=== PATIENT | female | born 1960 ===

== ENCOUNTER 2018-09-02 15:56 | Inpatient (IN) | payer MEDICARE, BC ==
[2018-09-02 16:08] VITALS: BMI 30.1
--- NOTE | 2018-09-02 17:59 | CP.PCM.HP ---
History of Present Illness - History of Present Illness History of Present Illness: 57 yo female with history of HTN, DM2, Hypothyroidism, Asthma and HLD was brought to [facility] on 08/29/18 after she was found unresponsive by son. Blood sugar was 48 so she was given IV D50. Patient recovered but was initially lethargic. Work ups which included CT scan, MRI and CSF analysis did not reveal significant findings. She was diagnosed to have seizure secondary to hypoglycemia. Diabetic medication were held and patient continued to improve. She was transferred to Acute Rehab for therapy because of deconditioning. Present on Admission - Present on Admission Any Indicators Present on Admission: No History of DVT/PE: No History of Uncontrolled Diabetes: No Urinary Catheter: No Decubitus Ulcer Present: No Review of Systems - Review of Systems All systems: reviewed and no additional remarkable complaints except (aside from those mentioned above, 12 point system review were negative by me) Past Patient History - Tetanus Immunizations Tetanus Immunization: Unknown - Past Medical History & Family History Past Medical History?: Yes - Past Social History Smoking Status: Never Smoked Chewing Tobacco Use: No Cigar Use: No Alcohol: None Drugs: Denies Home Situation {Lives}: With Family - CARDIAC Hx Hypertension: Yes - PULMONARY Hx Asthma: Yes - ENDOCRINE/METABOLIC Hx Diabetes Mellitus Type 2: Yes Hx Hypothyroidism: Yes - MUSCULOSKELETAL/RHEUMATOLOGICAL Hx Falls: Yes - PSYCHIATRIC Hx Substance Use: No - SURGICAL HISTORY Hx Surgeries: No Meds Allergies/Adverse Reactions: Allergies Allergy/AdvReac Type Severity Reaction Status Date / Time No Known Allergies Allergy Verified 09/02/18 17:29 Physical Exam - Constitutional Appears: No Acute Distress - Head Exam Head Exam: ATRAUMATIC - Eye Exam Eye Exam: absent: Scleral icterus - ENT Exam ENT Exam: Mucous Membranes Moist - Neck Exam Neck exam: Negative for: Meningismus - Respiratory Exam Respiratory Exam: absent: Rales, Rhonchi, Wheezes, Respiratory Distress - Cardiovascular Exam Cardiovascular Exam: REGULAR RHYTHM, +S1, +S2 - GI/Abdominal Exam GI & Abdominal Exam: Soft. absent: Tenderness - Rectal Exam Rectal Exam: Deferred - Extremities Exam Extremities exam: Negative for: calf tenderness, pedal edema - Back Exam Back exam: NORMAL INSPECTION - Neurological Exam Neurological exam: Alert, Oriented x3 - Psychiatric Exam Psychiatric exam: Normal Affect - Skin Skin Exam: Dry, Intact Assessment & Plan - Assessment and Plan (Free Text) Assessment: 57 yo female with history of HTN, DM2, Hypothyroidism, Asthma and HLD was brought to [facility] on 08/29/18 after she was found unresponsive by son. Blood sugar was 48 so she was given IV D50. Patient recovered but was initially lethargic. Work ups which included CT scan, MRI and CSF analysis did not reveal significant findings. She was diagnosed to have seizure secondary to hypoglycemia. Diabetic medication were held and patient continued to improve. She was transferred to Acute Rehab for therapy because of deconditioning. 1. Deconditioning refer to PT for management physiatry consult with Dr Osorio 2. Seizure no seizure medication since it was cause by hypoglycemia Dr Prado on neuro consult 3. HTN BP stable and controlled without medications 4. DM2 diabetic maintenance medication on [facility] HgA1C on 08/29/17 was 7.3 accuchek ACHS with low Lispro coverage 5. Hypothyroid TSH was only 0.13 on 08/29 will reduce Levothyroxine to 50mcg from 75mcg PO daily 6. DVT prophylaxis Lovenox 40mg SC daily
[2018-09-02] MEDS: Nystatin 100,000 Units/ml Oral Susp 5 ml UD PO SCH (21:51)
[2018-09-02] MEDS: Insulin Lispro (humaLOG) 100 Units/ml Inj SC SCH (21:57)
--- NOTE | 2018-09-02 22:07 | CP.PCM.CON ---
History of Present Illness - History of Present Illness History of Present Illness: 57 year old female admitted for acute rehab with deconditioning, after being found unresponsive, with apparently occurred secondary to seizure after hypoglycaemia. Patinet also with history of DM, HTN, hypothyroidism Review of Systems - Musculoskeletal Musculoskeletal: Muscle Weakness Past Patient History - Tetanus Immunizations Tetanus Immunization: Unknown - Past Medical History & Family History Past Medical History?: Yes - Past Social History Smoking Status: Never Smoked Chewing Tobacco Use: No Cigar Use: No Alcohol: None Drugs: Denies Home Situation {Lives}: With Family - CARDIAC Hx Hypertension: Yes - PULMONARY Hx Asthma: Yes - NEUROLOGICAL Hx Seizures: Yes - RENAL Hx Chronic Kidney Disease: No - ENDOCRINE/METABOLIC Hx Diabetes Mellitus Type 2: Yes Hx Hypothyroidism: Yes - HEMATOLOGICAL/ONCOLOGICAL Hx Blood Disorders: No Hx AIDS: No Hx Human Immunodeficiency Virus (HIV): No - INTEGUMENTARY Hx Dermatological Problems: No - MUSCULOSKELETAL/RHEUMATOLOGICAL Hx Falls: Yes - GASTROINTESTINAL Hx Gastroesophageal Reflux: Yes - GENITOURINARY/GYNECOLOGICAL Hx Genitourinary Disorders: No - PSYCHIATRIC Hx Substance Use: No - SURGICAL HISTORY Hx Surgeries: No - ANESTHESIA Hx Anesthesia: Yes Hx Anesthesia Reactions: No Hx Malignant Hyperthermia: No Has any member of the family had a problem w/ anesthesia?: No Meds Allergies/Adverse Reactions: Allergies Allergy/AdvReac Type Severity Reaction Status Date / Time No Known Allergies Allergy Verified 09/02/18 17:29 - Medications Medications: Current Medications Enoxaparin Sodium (Lovenox) 40 mg SC DAILY [facility]; Protocol Famotidine (Pepcid) 20 mg PO DAILY [facility] Insulin Human Lispro (Humalog) 0 units SC ACHS [facility]; Protocol Last Admin: 09/02/18 21:57 Dose: Not Given Levothyroxine Sodium (Synthroid) 50 mcg PO 0630 [facility] Nystatin (Nystatin Oral Susp) 5 ml PO QID [facility] Last Admin: 09/02/18 21:51 Dose: 5 ml Potassium Phos/Sodium Phos (Neutra-Phos) 1 pkt PO DAILY [facility] Physical Exam - Constitutional Appears: Well - Head Exam Head Exam: ATRAUMATIC, NORMAL INSPECTION, NORMOCEPHALIC - Eye Exam Eye Exam: EOMI, Normal appearance - ENT Exam ENT Exam: Mucous Membranes Moist - Neck Exam Neck exam: Positive for: Normal Inspection - Respiratory Exam Respiratory Exam: Clear to Auscultation Bilateral, NORMAL BREATHING PATTERN - Cardiovascular Exam Cardiovascular Exam: REGULAR RHYTHM - GI/Abdominal Exam GI & Abdominal Exam: Normal Bowel Sounds - Rectal Exam Rectal Exam: NORMAL INSPECTION - Exam External exam: NORMAL EXTERNAL EXAM - Extremities Exam Extremities exam: Positive for: normal inspection - Back Exam Back exam: NORMAL INSPECTION - Neurological Exam Neurological exam: Alert - Psychiatric Exam Psychiatric exam: Normal Affect, Normal Mood - Skin Skin Exam: Dry, Normal Color Results - Vital Signs Recent Vital Signs: Last Vital Signs Temp 98.1 F 09/02/18 20:24 Pulse 73 09/02/18 20:24 Resp 20 09/02/18 20:24 BP 150/77 09/02/18 20:24 Pulse Ox 99 09/02/18 20:24 - Labs Labs: Laboratory Results - last 24 hr 09/02/18 20:16 POC Glucose (mg/dL) 144 H Assessment & Plan (1) Seizure Status: Acute (2) TIA (transient ischemic attack) Status: Acute - Assessment and Plan (Free Text) Assessment: Deconditioning, HTn, DM, Seizure and HYpoglycaemai admitted for acute rehab. Plan for physical, occupational, rec therapy and for overaal plan of care.
--- NOTE | 2018-09-02 22:12 | PCM.OPOC ---
Physiatry Overall Plan of Care - Overall Plan of Care Estimated Length of Stay in Weeks: 2 Rehab Impairment: Mobility, Gait, Balance, Coordination Etiologic Diagnosis: Other Rehab/Medical Prognosis: Fair - Anticipated Interventions Physical Therapy:: Yes Occupational Therapy:: Yes Recreational Therapy:: Yes - Therapy Goals Bed Mobility: Independent Ambulation: Independent Functional Positional Changes:: Independent - Functional Outcomes Functional Outcomes: fair - Discharge Plan Identification of Barriers to Discharge: Home Situation Discharge Destination: Home
[2018-09-02] MEDS: guaiFENesin 600 mg ER Tab PO SCH (22:58)
[2018-09-03] MEDS: Levothyroxine 50 MCG TAB PO SCH (06:10)
[2018-09-03] MEDS ORDERED: Levothyroxine 75 MCG TAB PO SCH (06:30)
[2018-09-03] MEDS: Insulin Lispro (humaLOG) 100 Units/ml Inj SC SCH ×4 (07:38→21:31)
[2018-09-03] MEDS: Nystatin 100,000 Units/ml Oral Susp 5 ml UD PO SCH ×4 (08:14→21:31)
[2018-09-03] MEDS: Enoxaparin 40 mg Syringe SC SCH (08:14)
[2018-09-03] MEDS: guaiFENesin 600 mg ER Tab PO SCH ×2 (08:14→21:31)
[2018-09-03] MEDS: Potassium & Sodium Phosphate PO SCH (08:14)
--- NOTE | 2018-09-03 14:01 | PCM.EEG ---
Electroencephalogram Report - Electroencephalogram Report Procedure Date: 08/31/18 Medication: Famotidine, Insulin. Interpretation: Technical Information: This was a 16-channel EEG, 1-channel EKG , performed using an [employer] machine., electrodes were applied according to the 10/20 international placement system, impedances were less than 5 K Ohm. Clinical Information: Alter mental status. EEG Detail: During resting wakefulness there was a poorly developed posterior dominant rhythm at 7 Hz, 30-50 uV, which was poorly reactive to eye opening and closing only seen when she was stimulated. Drowsiness was associated with fragmentation of the posterior dominant rhythm and with slow roving eye movements. Sleep was not seen. There were occasional bursts of bi frontal paroxysmal activity at 7 to 8 Hz, lasting less than 1 second, this was seen during wakefulness and drowsiness. Hyperventilation was not performed. Photic stimulation was performed and there were no changes in the record. ECG was associated with a normal sinus rhythm. Impression: This is an abnormal EEG record that demonstrate the presence of a mild to moderate non specific diffuse disturbance of cortical activity, this is in keeping with a diffuse de anda matter dysfunction. These findings do not support a specific etiology
[2018-09-04] MEDS: Levothyroxine 50 MCG TAB PO SCH (06:20)
[2018-09-04] MEDS: Insulin Lispro (humaLOG) 100 Units/ml Inj SC SCH ×4 (06:33→21:25)
[2018-09-04] MEDS: Potassium & Sodium Phosphate PO SCH (08:04)
[2018-09-04] MEDS: guaiFENesin 600 mg ER Tab PO SCH ×2 (08:04→21:22)
[2018-09-04] MEDS: Enoxaparin 40 mg Syringe SC SCH (08:04)
[2018-09-04] MEDS: Nystatin 100,000 Units/ml Oral Susp 5 ml UD PO SCH ×4 (08:04→21:22)
--- NOTE | 2018-09-04 12:31 | CP.PCM.PN ---
Subjective - Date & Time of Evaluation Date of Evaluation: 09/04/18 Time of Evaluation: 11:00 - Subjective Subjective: no acute complaints of any pain Objective - Vital Signs/Intake and Output Vital Signs (last 24 hours): Temp Pulse Resp BP Pulse Ox 97.2 F L 90 18 135/79 97 09/04/18 07:35 09/04/18 08:35 09/04/18 07:35 09/04/18 07:35 09/04/18 08:35 - Medications Medications: Current Medications Enoxaparin Sodium (Lovenox) 40 mg SC DAILY [facility]; Protocol Last Admin: 09/04/18 08:04 Dose: 40 mg Famotidine (Pepcid) 20 mg PO DAILY [facility] Last Admin: 09/04/18 08:04 Dose: 20 mg Guaifenesin (Mucinex La) 600 mg PO Q12 [facility] Last Admin: 09/04/18 08:04 Dose: 600 mg Insulin Human Lispro (Humalog) 0 units SC ACHS [facility]; Protocol Last Admin: 09/04/18 12:26 Dose: Not Given Levothyroxine Sodium (Synthroid) 50 mcg PO 0630 [facility] Last Admin: 09/04/18 06:20 Dose: 50 mcg Nystatin (Nystatin Oral Susp) 5 ml PO QID [facility] Last Admin: 09/04/18 12:28 Dose: 5 ml Potassium Phos/Sodium Phos (Neutra-Phos) 1 pkt PO DAILY [facility] Last Admin: 09/04/18 08:04 Dose: 1 pkt - Head Exam Head Exam: ATRAUMATIC, NORMAL INSPECTION, NORMOCEPHALIC - Eye Exam Eye Exam: EOMI, Normal appearance, PERRL Pupil Exam: NORMAL ACCOMODATION - ENT Exam ENT Exam: Mucous Membranes Moist, Normal Exam - Neck Exam Neck Exam: Full ROM, Normal Inspection - Respiratory Exam Respiratory Exam: NORMAL BREATHING PATTERN - Cardiovascular Exam Cardiovascular Exam: REGULAR RHYTHM - GI/Abdominal Exam GI & Abdominal Exam: Soft, Normal Bowel Sounds - Rectal Exam Rectal Exam: NORMAL INSPECTION - Exam External exam: NORMAL EXTERNAL EXAM - Extremities Exam Extremities Exam: Full ROM, Normal Capillary Refill, Normal Inspection - Back Exam Back Exam: NORMAL INSPECTION - Neurological Exam Neurological Exam: Alert, Awake Neuro motor strength exam: Left Upper Extremity: 3, Right Upper Extremity: 3, Left Lower Extremity: 3, Right Lower Extremity: 3 - Psychiatric Exam Psychiatric exam: Normal Affect, Normal Mood - Skin Skin Exam: Dry, Intact Assessment and Plan (1) Seizure Status: Acute (2) TIA (transient ischemic attack) Assessment & Plan: plan for physical, occupational, rec therapy equipment eval and Dc planning Status: Acute
--- NOTE | 2018-09-04 16:38 | CP.PCM.PN ---
Subjective - Date & Time of Evaluation Date of Evaluation: 09/04/18 Time of Evaluation: 18:30 - Subjective Subjective: Patient seen and examined bedside . Feeling well and participating with PT . Hemodynamically stable, afebrile. No acute issues overnight Objective - Vital Signs/Intake and Output Vital Signs (last 24 hours): Temp Pulse Resp BP Pulse Ox 97.2 F L 90 18 135/79 97 09/04/18 07:35 09/04/18 08:35 09/04/18 07:35 09/04/18 07:35 09/04/18 08:35 - Medications Medications: Current Medications Enoxaparin Sodium (Lovenox) 40 mg SC DAILY [facility]; Protocol Last Admin: 09/04/18 08:04 Dose: 40 mg Famotidine (Pepcid) 20 mg PO DAILY [facility] Last Admin: 09/04/18 08:04 Dose: 20 mg Guaifenesin (Mucinex La) 600 mg PO Q12 [facility] Last Admin: 09/04/18 08:04 Dose: 600 mg Insulin Human Lispro (Humalog) 0 units SC ACHS [facility]; Protocol Last Admin: 09/04/18 12:26 Dose: Not Given Levothyroxine Sodium (Synthroid) 50 mcg PO 0630 [facility] Last Admin: 09/04/18 06:20 Dose: 50 mcg Nystatin (Nystatin Oral Susp) 5 ml PO QID [facility] Last Admin: 09/04/18 12:28 Dose: 5 ml Potassium Phos/Sodium Phos (Neutra-Phos) 1 pkt PO DAILY [facility] Last Admin: 09/04/18 08:04 Dose: 1 pkt - Constitutional Appears: Non-toxic, No Acute Distress - Head Exam Head Exam: ATRAUMATIC, NORMAL INSPECTION, NORMOCEPHALIC - Eye Exam Eye Exam: EOMI, Normal appearance, PERRL Pupil Exam: NORMAL ACCOMODATION - ENT Exam ENT Exam: Mucous Membranes Moist, Normal Exam - Neck Exam Neck Exam: Full ROM, Normal Inspection - Respiratory Exam Respiratory Exam: Clear to Ausculation Bilateral, NORMAL BREATHING PATTERN. absent: Rales, Rhonchi, Wheezes - Cardiovascular Exam Cardiovascular Exam: REGULAR RHYTHM, RRR, +S1, +S2. absent: JVD - GI/Abdominal Exam GI & Abdominal Exam: Soft, Normal Bowel Sounds. absent: Distended, Guarding, Tenderness, Rebound - Rectal Exam Rectal Exam: Deferred - Extremities Exam Extremities Exam: Full ROM, Normal Capillary Refill, Normal Inspection. absent: Pedal Edema - Back Exam Back Exam: NORMAL INSPECTION - Neurological Exam Neurological Exam: Alert, Awake, CN II-XII Intact, Normal Gait - Psychiatric Exam Psychiatric exam: Normal Affect, Normal Mood - Skin Skin Exam: Dry, Intact, Normal Color, Warm Assessment and Plan - Assessment and Plan (Free Text) Assessment: 57 yo female with history of HTN, DM2, Hypothyroidism, Asthma and HLD was brought to [facility] on 08/29/18 after she was found unresponsive by son. Blood sugar was 48 so she was given IV D50. Patient recovered but was initially lethargic. Work ups which included CT scan, MRI and CSF analysis did not reveal significant findings. She was diagnosed to have seizure secondary to hypoglycemia. Diabetic medication were held and patient continued to improve. She was transferred to Acute Rehab for therapy because of deconditioning. 1. Deconditioning participating with PT and improving physiatry consult with Dr Osorio on board 2. Seizure no seizure medication since it was cause by hypoglycemia Dr Prado on neuro consult 3. HTN BP stable and controlled without medications 4. DM2 diabetic maintenance medication on hold HgA1C on 08/29/17 was 7.3 accuchek ACHS with low Lispro coverage 5. Hypothyroid TSH was only 0.13 on 08/29 redusced Levothyroxine to 50mcg from 75mcg PO daily 6. DVT prophylaxis Lovenox 40mg SC daily
[2018-09-05] MEDS: Levothyroxine 50 MCG TAB PO SCH (05:34)
[2018-09-05] MEDS: Insulin Lispro (humaLOG) 100 Units/ml Inj SC SCH ×4 (06:41→21:34)
[2018-09-05 07:17] LABS: HEMOGLOBIN 13.6 g/dL (12.0-16.0); MEAN CELL VOLUME 93.9 fl (81.0-99.0); MEAN CORPUSCULAR HEMOGLOBIN 31.5 pg (27.0-31.0); MEAN CORPUSCULAR HGB CONC 33.5 g/dL (33.0-37.0); RBC 4.31 Mil/uL (3.80-5.20); RED CELL DISTRIBUTION WIDTH 14.9 % (11.5-14.5); WHITE BLOOD COUNT 6.5 K/uL (4.8-10.8)
[2018-09-05 07:34] LABS: BLOOD UREA NITROGEN 10 mg/dl (7-17); CALCIUM 9.5 mg/dL (8.4-10.2); GFR NON-AFRICAN AMERICAN > 60
[2018-09-05] MEDS: Nystatin 100,000 Units/ml Oral Susp 5 ml UD PO SCH ×4 (08:42→21:35)
[2018-09-05] MEDS: Enoxaparin 40 mg Syringe SC SCH (08:42)
[2018-09-05] MEDS: guaiFENesin 600 mg ER Tab PO SCH ×2 (08:43→21:35)
[2018-09-05] MEDS: Potassium & Sodium Phosphate PO SCH (08:43)
[2018-09-06] MEDS: Levothyroxine 50 MCG TAB PO SCH (06:22)
[2018-09-06] MEDS: Insulin Lispro (humaLOG) 100 Units/ml Inj SC SCH ×4 (06:31→21:10)
[2018-09-06] MEDS: Enoxaparin 40 mg Syringe SC SCH (08:40)
[2018-09-06] MEDS: guaiFENesin 600 mg ER Tab PO SCH ×2 (08:40→21:11)
[2018-09-06] MEDS: Potassium & Sodium Phosphate PO SCH (08:40)
[2018-09-06] MEDS: Nystatin 100,000 Units/ml Oral Susp 5 ml UD PO SCH ×4 (08:41→21:11)
[2018-09-07] MEDS: Levothyroxine 50 MCG TAB PO SCH (05:58)
[2018-09-07] MEDS: Insulin Lispro (humaLOG) 100 Units/ml Inj SC SCH ×4 (06:34→21:14)
[2018-09-07] MEDS: Potassium & Sodium Phosphate PO SCH (08:37)
[2018-09-07] MEDS: Nystatin 100,000 Units/ml Oral Susp 5 ml UD PO SCH ×4 (08:37→21:13)
[2018-09-07] MEDS: guaiFENesin 600 mg ER Tab PO SCH ×2 (08:37→21:13)
[2018-09-07] MEDS: Enoxaparin 40 mg Syringe SC SCH (08:37)
[2018-09-07] MEDS: Albuterol-Ipratrop 3 mg / 0.5 (3 ml) UD INH PRN ×3 (10:58→21:48)
--- NOTE | 2018-09-07 13:59 | CP.PCM.PN ---
Subjective - Date & Time of Evaluation Date of Evaluation: 09/07/18 Time of Evaluation: 13:57 - Subjective Subjective: Patient seen and examined; no acute events overnight No distress, working with PT Objective - Vital Signs/Intake and Output Vital Signs (last 24 hours): Temp Pulse Resp BP Pulse Ox 97.3 F L 80 20 103/71 98 09/07/18 07:30 09/07/18 10:59 09/07/18 07:30 09/07/18 07:30 09/07/18 07:30 - Medications Medications: Current Medications Albuterol/Ipratropium (Duoneb 3 Mg/0.5 Mg (3 Ml) Ud) 3 ml INH RQ6 PRN PRN Reason: Shortness of Breath Last Admin: 09/07/18 10:58 Dose: 3 ml Enoxaparin Sodium (Lovenox) 40 mg SC DAILY [facility]; Protocol Last Admin: 09/07/18 08:37 Dose: 40 mg Famotidine (Pepcid) 20 mg PO DAILY [facility] Last Admin: 09/07/18 08:37 Dose: 20 mg Guaifenesin (Mucinex La) 600 mg PO Q12 [facility] Last Admin: 09/07/18 08:37 Dose: 600 mg Insulin Human Lispro (Humalog) 0 units SC ACHS [facility]; Protocol Last Admin: 09/07/18 12:10 Dose: Not Given Levothyroxine Sodium (Synthroid) 50 mcg PO 0630 [facility] Last Admin: 09/07/18 05:58 Dose: 50 mcg Nystatin (Nystatin Oral Susp) 5 ml PO QID [facility] Last Admin: 09/07/18 13:30 Dose: 5 ml Potassium Phos/Sodium Phos (Neutra-Phos) 1 pkt PO DAILY [facility] Last Admin: 09/07/18 08:37 Dose: 1 pkt - Labs Labs: 09/05/18 05:30 09/05/18 05:30 - Constitutional Appears: Well - Head Exam Head Exam: ATRAUMATIC - Eye Exam Eye Exam: EOMI Pupil Exam: PERRL - ENT Exam ENT Exam: Mucous Membranes Moist - Respiratory Exam Respiratory Exam: NORMAL BREATHING PATTERN - Cardiovascular Exam Cardiovascular Exam: REGULAR RHYTHM - GI/Abdominal Exam GI & Abdominal Exam: Soft, Normal Bowel Sounds - Neurological Exam Neurological Exam: Alert (+), Awake, CN II-XII Intact, Normal Gait - Psychiatric Exam Psychiatric exam: Normal Affect Assessment and Plan - Assessment and Plan (Free Text) Plan: - Assessment and Plan (Free Text) Assessment: 57 yo female with history of HTN, DM2, Hypothyroidism, Asthma and HLD was brought to [facility] on 08/29/18 after she was found unresponsive by son. Blood sugar was 48 so she was given IV D50. Patient recovered but was initially lethargic. Work ups which included CT scan, MRI and CSF analysis did not reveal significant findings. She was diagnosed to have seizure secondary to hypoglycemia. Diabetic medication were held and patient continued to improve. She was transferred to Acute Rehab for therapy because of deconditioning. 1. Deconditioning participating with PT and improving physiatry consult with Dr Osorio on board 2. Seizure no seizure medication since it was cause by hypoglycemia Dr Prado on neuro consult 3. HTN BP stable and controlled without medications 4. DM2 diabetic maintenance medication on hold HgA1C on 08/29/17 was 7.3 accuchek ACHS with low Lispro coverage 5. Hypothyroid TSH was only 0.13 on 08/29 redusced Levothyroxine to 50mcg from 75mcg PO daily 6. DVT prophylaxis Lovenox 40mg SC daily
[2018-09-08] MEDS: Levothyroxine 50 MCG TAB PO SCH (06:14)
[2018-09-08] MEDS: Insulin Lispro (humaLOG) 100 Units/ml Inj SC SCH ×4 (06:30→21:32)
[2018-09-08 07:15] LABS: HEMOGLOBIN 13.9 g/dL (12.0-16.0); MEAN CELL VOLUME 94.2 fl (81.0-99.0); MEAN CORPUSCULAR HEMOGLOBIN 31.1 pg (27.0-31.0); RBC 4.46 Mil/uL (3.80-5.20); RED CELL DISTRIBUTION WIDTH 14.9 % (11.5-14.5); WHITE BLOOD COUNT 6.8 K/uL (4.8-10.8)
[2018-09-08] MEDS: Albuterol-Ipratrop 3 mg / 0.5 (3 ml) UD INH PRN (07:40)
[2018-09-08 08:18] LABS: BLOOD UREA NITROGEN 15 mg/dl (7-17); CALCIUM 9.6 mg/dL (8.4-10.2); GFR NON-AFRICAN AMERICAN > 60
[2018-09-08] MEDS: Nystatin 100,000 Units/ml Oral Susp 5 ml UD PO SCH ×4 (08:22→21:31)
[2018-09-08] MEDS: Enoxaparin 40 mg Syringe SC SCH (08:24)
[2018-09-08] MEDS: Potassium & Sodium Phosphate PO SCH (08:24)
[2018-09-08] MEDS: guaiFENesin 600 mg ER Tab PO SCH ×2 (08:24→21:31)
[2018-09-08] MEDS: Albuterol-Ipratrop 3 mg / 0.5 (3 ml) UD INH SCH ×2 (13:11→19:28)
--- NOTE | 2018-09-08 20:05 | CP.PCM.PN ---
Subjective - Date & Time of Evaluation Date of Evaluation: 09/07/18 Time of Evaluation: 13:00 - Subjective Subjective: no acute complaints at present Objective - Vital Signs/Intake and Output Vital Signs (last 24 hours): Temp Pulse Resp BP Pulse Ox 97.9 F 82 20 118/70 100 09/08/18 09:00 09/08/18 09:00 09/08/18 09:00 09/08/18 09:00 09/08/18 07:32 - Medications Medications: Current Medications Albuterol/Ipratropium (Duoneb 3 Mg/0.5 Mg (3 Ml) Ud) 3 ml INH RQ6 [facility] Last Admin: 09/08/18 19:28 Dose: 3 ml Enoxaparin Sodium (Lovenox) 40 mg SC DAILY [facility]; Protocol Last Admin: 09/08/18 08:24 Dose: 40 mg Famotidine (Pepcid) 20 mg PO DAILY [facility] Last Admin: 09/08/18 08:23 Dose: 20 mg Guaifenesin (Mucinex La) 600 mg PO Q12 [facility] Last Admin: 09/08/18 08:24 Dose: 600 mg Insulin Human Lispro (Humalog) 0 units SC ACHS [facility]; Protocol Last Admin: 09/08/18 17:39 Dose: Not Given Levothyroxine Sodium (Synthroid) 50 mcg PO 0630 [facility] Last Admin: 09/08/18 06:14 Dose: 50 mcg Nystatin (Nystatin Oral Susp) 5 ml PO QID [facility] Last Admin: 09/08/18 17:33 Dose: 5 ml Potassium Phos/Sodium Phos (Neutra-Phos) 1 pkt PO DAILY [facility] Last Admin: 09/08/18 08:24 Dose: 1 pkt - Labs Labs: 09/08/18 06:00 09/08/18 06:00 - Head Exam Head Exam: ATRAUMATIC, NORMAL INSPECTION, NORMOCEPHALIC - Eye Exam Eye Exam: EOMI, Normal appearance Pupil Exam: NORMAL ACCOMODATION, PERRL - ENT Exam ENT Exam: Mucous Membranes Moist, Normal Exam - Neck Exam Neck Exam: Normal Inspection - Respiratory Exam Respiratory Exam: Clear to Ausculation Bilateral, NORMAL BREATHING PATTERN - Cardiovascular Exam Cardiovascular Exam: REGULAR RHYTHM - GI/Abdominal Exam GI & Abdominal Exam: Soft, Normal Bowel Sounds - Rectal Exam Rectal Exam: NORMAL INSPECTION - Exam External exam: NORMAL EXTERNAL EXAM - Extremities Exam Extremities Exam: Normal Capillary Refill - Back Exam Back Exam: NORMAL INSPECTION - Neurological Exam Neurological Exam: Alert, Awake Neuro motor strength exam: Left Upper Extremity: 3, Right Upper Extremity: 3, Left Lower Extremity: 3, Right Lower Extremity: 3 - Psychiatric Exam Psychiatric exam: Normal Affect - Skin Skin Exam: Normal Color Assessment and Plan (1) Seizure Assessment & Plan: status post unresponsive episode , brought to hospital, history of HTn, DM, Hypothyroidism now for physical, occupational, rec therapy Status: Acute (2) TIA (transient ischemic attack) Status: Acute
[2018-09-09] MEDS: Albuterol-Ipratrop 3 mg / 0.5 (3 ml) UD INH SCH ×4 (01:00→19:16)
[2018-09-09] MEDS: Levothyroxine 50 MCG TAB PO SCH (06:03)
[2018-09-09] MEDS: Insulin Lispro (humaLOG) 100 Units/ml Inj SC SCH ×4 (06:55→21:20)
[2018-09-09] MEDS: Enoxaparin 40 mg Syringe SC SCH (08:21)
[2018-09-09] MEDS: Nystatin 100,000 Units/ml Oral Susp 5 ml UD PO SCH ×4 (08:21→21:19)
[2018-09-09] MEDS: Potassium & Sodium Phosphate PO SCH (08:22)
[2018-09-09] MEDS: guaiFENesin 600 mg ER Tab PO SCH ×2 (08:22→21:19)
--- NOTE | 2018-09-09 12:04 | CP.PCM.PN ---
Subjective - Date & Time of Evaluation Date of Evaluation: 09/09/18 Time of Evaluation: 11:00 - Subjective Subjective: no acute complaints of any pain Objective - Vital Signs/Intake and Output Vital Signs (last 24 hours): Temp Pulse Resp BP Pulse Ox 98.0 F 65 20 112/62 98 09/09/18 08:35 09/09/18 08:35 09/09/18 08:35 09/09/18 08:35 09/09/18 08:35 - Medications Medications: Current Medications Albuterol/Ipratropium (Duoneb 3 Mg/0.5 Mg (3 Ml) Ud) 3 ml INH RQ6 [facility] Last Admin: 09/09/18 07:40 Dose: 3 ml Enoxaparin Sodium (Lovenox) 40 mg SC DAILY [facility]; Protocol Last Admin: 09/09/18 08:21 Dose: 40 mg Famotidine (Pepcid) 20 mg PO DAILY [facility] Last Admin: 09/09/18 08:22 Dose: 20 mg Guaifenesin (Mucinex La) 600 mg PO Q12 [facility] Last Admin: 09/09/18 08:22 Dose: 600 mg Insulin Human Lispro (Humalog) 0 units SC ACHS [facility]; Protocol Last Admin: 09/09/18 06:55 Dose: Not Given Levothyroxine Sodium (Synthroid) 50 mcg PO 0630 [facility] Last Admin: 09/09/18 06:03 Dose: 50 mcg Nystatin (Nystatin Oral Susp) 5 ml PO QID [facility] Last Admin: 09/09/18 08:21 Dose: 5 ml Potassium Phos/Sodium Phos (Neutra-Phos) 1 pkt PO DAILY [facility] Last Admin: 09/09/18 08:22 Dose: 1 pkt - Labs Labs: 09/08/18 06:00 09/08/18 06:00 - Head Exam Head Exam: ATRAUMATIC, NORMAL INSPECTION, NORMOCEPHALIC - Eye Exam Eye Exam: EOMI, Normal appearance, PERRL Pupil Exam: NORMAL ACCOMODATION - ENT Exam ENT Exam: Mucous Membranes Moist, Normal Exam - Neck Exam Neck Exam: Full ROM, Normal Inspection - Respiratory Exam Respiratory Exam: NORMAL BREATHING PATTERN - Cardiovascular Exam Cardiovascular Exam: REGULAR RHYTHM - GI/Abdominal Exam GI & Abdominal Exam: Soft, Normal Bowel Sounds - Rectal Exam Rectal Exam: NORMAL INSPECTION - Exam External exam: NORMAL EXTERNAL EXAM - Extremities Exam Extremities Exam: Full ROM, Normal Capillary Refill, Normal Inspection - Back Exam Back Exam: NORMAL INSPECTION - Neurological Exam Neurological Exam: Alert, Awake Neuro motor strength exam: Left Upper Extremity: 3, Right Upper Extremity: 3, Left Lower Extremity: 3, Right Lower Extremity: 3 - Psychiatric Exam Psychiatric exam: Normal Affect, Normal Mood - Skin Skin Exam: Dry Assessment and Plan (1) Seizure Status: Acute (2) TIA (transient ischemic attack) Assessment & Plan: patinet with deconditioning, range of [id number], strenghtening, transfers and gait training for team conference Status: Acute
--- NOTE | 2018-09-09 12:07 | PCM.PSYTMC ---
Acute Rehab Team Conference - - Vital Signs: Vital Signs (Last 8 Hours): Vital Signs 09/09/18 08:35 Temperature 98.0 F Pulse Rate 65 Respiratory 20 Rate Blood Pressure 112/62 O2 Sat by Pulse 98 Oximetry Pain: 0 - Precautions: Precautions: Fall Prevention, Seizure - Medications/Other Issues: Comment: COMPLAINED OF CHEST TIGHTNESS AND SOB DURING THERAPY YESTERDAY. STARTED ON DUONEB Q6H PRN. VERBALIZED RELIEF. PT IS ON BREO AT HOME BUT PREFERS NOT TO USE ANY HOME MEDS WHILE IN THE HOSPITAL. - Consults: Comment: DR. REEVES - Toileting: Toileting: Supervision - Bladder Management: Bladder Pattern: Normal Voiding Method: Toilet, Bedpan Bladder Management: Supervision Other Intervention:: 0 - Transfers: Transfers: Minimal Assistance - ADL's: ADL's: Minimal Assistance - Patient/Family Teaching: Other Intervention:: SAFETY AND FALL PRECAUTIONS, DM MANAGEMENT - Goals/Time Frame: Comment: PER MULTIDISCIPLINARY CARE PLAN GOALS - Provider: Registered Nurse:: Dorothy Awad Physical Therapy - Bed Mobility Bed Mobility: Modified Independent, Supervision - Transfers Wheelchair to Mat: Supervision Sit to Stand: Supervision Comment: SPC - Ambulation Distance (ft.): 150 Assistive Devices: Single point cane Orthoses: n/a Comment: 150 feet, level surface, SPC. -supervision. -slow steady speed with reciprocal pattern. -education and discussion regarding energy conservation techniques as patient notes that as she becomes fatigued she feels increased unsteadiness and impaired balance. -encouraged patient to self-manage energy techniques - Stair Negotiation Stairs: Level of Assistance: Supervision Stairs: Assistive Devices: Right Handrail, Crutches Comment: 1 flight 8 inch steps. -level surface, single rail (R rail) with SPC. -step to pattern with slow steady speed - Standing Balance Static Stand: Modified [place] with assistive device - Pain Pain (assessed during therapy session): 1 Comment: -chest tightness with coughing. -sub-occipital discomfort/muscle tension - Insight/Carryover Insight/Carryover: Good - Patient/Family Education Comment: safety, therapy schedule, therapy goals, mobility, use of DME, energy conservation, relaxation techniques - Assessment/Plan Assessment: Ms. Woods continues to report that with breathing treatments she is able to breathe better and feels much better. Patient reports that dizziness and head-aches have much improved since manual therapy to sub-occipital regions coupled with respiratory treatments. Patient continues to have coughing fits during therapy with productive phlegm noted. Patient has increase in coughing with activity but over-all reports her coughing has improved and she is able to sleep better at night. Pt benefits from reducing speed and using energy conservation techniques as well as using SPC for balance and mobility. PT rec ommends continued skilled services to continue addressing skilled needs. PT recommends home discharge with outpatient PT. - Goals Tiimeframe: 7 days Goals: I with bed/mat mobility. mod I with transfers with SPC. mod I with gait x 500 feet with SPC. mod I to negotiate 1 flight of steps with SPC - Provider Physical Therapist:: Eugenia Lemons License Number:: [id number] Occupational Therapy - Arousal/Attention/Orientation Level of Consciousness: Awake, Alert Patient Orientation: Person, Place, Time, Appropriate to Age, Appropriate to Situation Assessment Comment: -impaired activity tolerance. -impaired respiratory function/asthma. -impaired postural control - ADL/IADL Self Feeding: Independent, Set-up Help Grooming: Independent, Set-up Help Bathing-Upper Ext: Independent, Set-up Help Bathing-Lower Ext: Supervision, Verbal Cues, Set-up Help, Contact Guard Dressing-Upper Ext: Independent, Set-up Help Dressing-Lower Ext: Supervision, Verbal Cues, Set-up Help - Sitting Balance Static Sitting: Independent without upper extremity support Dynamic Sitting: Reaches across midline, Reaches out of base of support, Reaches within base of support, Requires supervision Comment: unsupported at edgs of bed - Transfers Wheelchair to Bed Transfers: Supervision, Verbal Cues, Contact Guard Toilet Transfers: Supervision, Verbal Cues, Set-up Help, Contact Guard Comment: -shower transfers: CG/CS and verbal cues for safety. -uses SPC/or without for above tasks - Wheelchair Management Level of Assistance: Supervision Distance (ft.): 100 - Upper Extremity Status Right Upper Extremity Comment: A/PROM is WNLS Left Upper Extremity Comment: A/PROM WNLS - Pain Pain (assessed during therapy session): 0 - Insight/Carryover Insight/Carryover: Good - Patient/Family Education Comment: -ongoing for adls, transfers/mobility training. -OT/rehab goals, plan of care. -energy conservation/work simplification. -balance strategies. -DME needs/applications & uses - Assessment/Plan Assessment: Pt is a 57 year old female with dx: seizures. *Precautions: falls, cardiac, seizure precautions, asthma. Pt limited by impaired overall strength, impaired activity tolerance/endurance, impaired postural control, impaired knowledge of adaptive/compensatory strategies--which all impact on function in self care, transfers/mobility & Iadls. Pt will continue skilled Occupational Therapy to address the above impairments to maximize function in adls, transfers, mobility, homemaking and Iadls using adaptive/compensatory strategies & energy conservation /work simplification techniques for safe transition home with services. Pt continues to demonstrate steady improvements in function in self care, functional transfers/mobility, postural control, activity tolerance, overall endurance/ strength & overall safety awareness. Pt may need the following DMEs: shower chair with back, hand held shower, two 16" grab bars--with reassess needs as pt progress. *Goal: Mod I in self care, transfers/mobility, homemaking skills with assistive device prn & caregiver to be I assisting pt prn with daily living tasks prn. - Goals Timeframe: 1 week Comment: -GROOMING(standing): Mod I. -UPPER BODY DRESSING: Mod I. -LOWER BODY DRESSING: Mod I. -TRANSFERS:<->bed, toilet, chair with Mod I, <->shower/tub with Supervision. -HOMEMAKING/KITCHEN TASKS: Mod I. -BATHING/SHOWERING: I/setup. -BED MOBILITY: Mod I. -GATHER/TRANSPORT ITEMS: <->closet, refrigerator, drawers, other areas with Mod I in prep for daily living tasks. - CAREGIVER ED: caregiver to I assisting pt with daily living tasks prn. -W/C MANAGEMENT/PROPULSION: propel w/c 150 feet+ with Mod I, manage B brakes with Mod I - Provider Occupational Therapist:: Sanna Jackman License Number: [id number] Recreational Therapy - Participation Participation: Participates in Individual and/or Group Sessions, Monitors His/Her Own Leisure Time - Attendance Attendance: 3-5 times per week - Activities Leisure Activities: Reading - Socialization Level of Socialization: Initiates/interacts freely with care givers and peer - Diversional Time Diversional Time: television, reading, socializing - Assessment Assessment/Plan: Pt is agreeable to participate in 1:1 and group recreation therapy sessions. Pt attended group bingo session and was independent with task following setup. Pt receives daily room visits for social support and encouragement to participate in sessions. Pt will continue to benefit from leisure education to improve activity tolerance level and leisure awareness level following discharge. Problems Currently Limiting Participation: decrease leisure awareness level, decrease arousal level Goals and Time Frame: Pt will be encouraged to participate in 1:1 and group recreation therapy sessions 3-5x week to improve leisure awareness level, arousal level, activity tolerance level, and improve mood state. - Provider Therapist: Iris Mauricio Nutrition - Current Diet Current Diet/Supplement/Feedings: Moderate consistent CHO 2 gram Na advanced bite size thin liquids - Appetite Percent Meal Consumed: 75-100% - Assessment/Goals/Time Frame Assessments/Goals/Time Frame: Pt at moderate nutrtirional risk. goals: 1) Pt to consume at least 50-75% meals without GI upset or complaint of issues chewing/swallowing x 3-5 days(met, continue). 2) Pt to have glucose controlled 70-180mg/dL without hypoglycemia x 3-5 days.(met, continue). Follow-up due on 09/15/2018 - Provider Provider: Feli Cintron Case Management - Discharge Plan Discharge Plan: Home with significant other/family (dc sep 12)
--- NOTE | 2018-09-09 13:13 | CP.PCM.PN ---
Subjective - Date & Time of Evaluation Date of Evaluation: 09/09/18 Time of Evaluation: 13:11 - Subjective Subjective: no acute events blood sugars controlled working with PT Objective - Vital Signs/Intake and Output Vital Signs (last 24 hours): Temp Pulse Resp BP Pulse Ox 98.0 F 65 20 112/62 98 09/09/18 08:35 09/09/18 08:35 09/09/18 08:35 09/09/18 08:35 09/09/18 08:35 - Medications Medications: Current Medications Albuterol/Ipratropium (Duoneb 3 Mg/0.5 Mg (3 Ml) Ud) 3 ml INH RQ6 [facility] Last Admin: 09/09/18 07:40 Dose: 3 ml Enoxaparin Sodium (Lovenox) 40 mg SC DAILY [facility]; Protocol Last Admin: 09/09/18 08:21 Dose: 40 mg Famotidine (Pepcid) 20 mg PO DAILY [facility] Last Admin: 09/09/18 08:22 Dose: 20 mg Guaifenesin (Mucinex La) 600 mg PO Q12 [facility] Last Admin: 09/09/18 08:22 Dose: 600 mg Insulin Human Lispro (Humalog) 0 units SC ACHS [facility]; Protocol Last Admin: 09/09/18 06:55 Dose: Not Given Levothyroxine Sodium (Synthroid) 50 mcg PO 0630 [facility] Last Admin: 09/09/18 06:03 Dose: 50 mcg Nystatin (Nystatin Oral Susp) 5 ml PO QID [facility] Last Admin: 09/09/18 08:21 Dose: 5 ml Potassium Phos/Sodium Phos (Neutra-Phos) 1 pkt PO DAILY [facility] Last Admin: 09/09/18 08:22 Dose: 1 pkt - Labs Labs: 09/08/18 06:00 09/08/18 06:00 - Constitutional Appears: No Acute Distress - Eye Exam Eye Exam: EOMI, PERRL - ENT Exam ENT Exam: Mucous Membranes Moist - Respiratory Exam Respiratory Exam: Clear to Ausculation Bilateral - Cardiovascular Exam Cardiovascular Exam: REGULAR RHYTHM - Neurological Exam Neurological Exam: Awake, CN II-XII Intact, Oriented x3 Assessment and Plan - Assessment and Plan (Free Text) Assessment: 57 yo female with history of HTN, DM2, Hypothyroidism, Asthma and HLD was brought to [facility] on 08/29/18 after she was found unresponsive by son. Blood sugar was 48 so she was given IV D50. Patient recovered but was initially lethargic. Work ups which included CT scan, MRI and CSF analysis did not reveal significant findings. She was diagnosed to have seizure secondary to hypoglyc emia. Diabetic medication were held and patient continued to improve. She was transferred to Acute Rehab for therapy because of deconditioning. 1. Deconditioning participating with PT and improving physiatry consult with Dr Osorio on board 2. Seizure no seizure medication since it was cause by hypoglycemia Dr Prado on neuro consult 3. HTN BP stable and controlled without medications 4. DM2 diabetic maintenance medication on hold HgA1C on 08/29/17 was 7.3 accuchek ACHS with low Lispro coverage 5. Hypothyroid TSH was only 0.13 on 08/29 reduced Levothyroxine to 50mcg from 75mcg PO daily 6. DVT prophylaxis Lovenox 40mg SC daily
[2018-09-10] MEDS: Albuterol-Ipratrop 3 mg / 0.5 (3 ml) UD INH SCH ×4 (01:59→19:29)
[2018-09-10] MEDS: Levothyroxine 50 MCG TAB PO SCH (05:57)
[2018-09-10] MEDS: Insulin Lispro (humaLOG) 100 Units/ml Inj SC SCH ×4 (08:04→21:25)
[2018-09-10] MEDS: Enoxaparin 40 mg Syringe SC SCH (08:21)
[2018-09-10] MEDS: Nystatin 100,000 Units/ml Oral Susp 5 ml UD PO SCH ×4 (08:22→21:26)
[2018-09-10] MEDS: Potassium & Sodium Phosphate PO SCH (08:22)
[2018-09-10] MEDS: guaiFENesin 600 mg ER Tab PO SCH ×2 (08:22→21:25)
[2018-09-11] MEDS: Albuterol-Ipratrop 3 mg / 0.5 (3 ml) UD INH SCH ×4 (01:00→19:13)
[2018-09-11] MEDS: Levothyroxine 50 MCG TAB PO SCH (06:02)
[2018-09-11 06:31] LABS: HEMOGLOBIN 12.5 g/dL (12.0-16.0); MEAN CELL VOLUME 93.5 fl (81.0-99.0); MEAN CORPUSCULAR HEMOGLOBIN 31.3 pg (27.0-31.0); MEAN CORPUSCULAR HGB CONC 33.5 g/dL (33.0-37.0); RBC 3.99 Mil/uL (3.80-5.20); RED CELL DISTRIBUTION WIDTH 14.6 % (11.5-14.5); WHITE BLOOD COUNT 4.7 K/uL (4.8-10.8)
[2018-09-11] MEDS: Insulin Lispro (humaLOG) 100 Units/ml Inj SC SCH ×4 (06:35→21:41)
[2018-09-11 06:45] LABS: BLOOD UREA NITROGEN 13 mg/dl (7-17); CALCIUM 9.8 mg/dL (8.4-10.2); GFR NON-AFRICAN AMERICAN > 60
[2018-09-11] MEDS: guaiFENesin 600 mg ER Tab PO SCH ×2 (08:51→21:42)
[2018-09-11] MEDS: Nystatin 100,000 Units/ml Oral Susp 5 ml UD PO SCH ×4 (08:51→21:43)
[2018-09-11] MEDS: Enoxaparin 40 mg Syringe SC SCH (08:51)
--- NOTE | 2018-09-11 11:48 | CP.PCM.PN ---
Subjective - Date & Time of Evaluation Date of Evaluation: 09/10/18 Time of Evaluation: 19:00 - Subjective Subjective: no acute neck or back pain Objective - Vital Signs/Intake and Output Vital Signs (last 24 hours): Temp Pulse Resp BP Pulse Ox 98.2 F 85 21 113/62 96 09/11/18 09:58 09/11/18 09:58 09/11/18 09:58 09/11/18 09:58 09/11/18 09:58 - Medications Medications: Current Medications Albuterol/Ipratropium (Duoneb 3 Mg/0.5 Mg (3 Ml) Ud) 3 ml INH RQ6 [facility] Last Admin: 09/11/18 08:13 Dose: 3 ml Enoxaparin Sodium (Lovenox) 40 mg SC DAILY [facility]; Protocol Last Admin: 09/11/18 08:51 Dose: 40 mg Famotidine (Pepcid) 20 mg PO DAILY [facility] Last Admin: 09/11/18 08:51 Dose: 20 mg Guaifenesin (Mucinex La) 600 mg PO Q12 [facility] Last Admin: 09/11/18 08:51 Dose: 600 mg Insulin Human Lispro (Humalog) 0 units SC ACHS [facility]; Protocol Last Admin: 09/11/18 06:35 Dose: Not Given Levothyroxine Sodium (Synthroid) 50 mcg PO 0630 [facility] Last Admin: 09/11/18 06:02 Dose: 50 mcg Nystatin (Nystatin Oral Susp) 5 ml PO QID [facility] Last Admin: 09/11/18 08:51 Dose: 5 ml - Labs Labs: 09/11/18 05:20 09/11/18 05:20 - Head Exam Head Exam: ATRAUMATIC, NORMAL INSPECTION, NORMOCEPHALIC - Eye Exam Eye Exam: EOMI, Normal appearance, PERRL Pupil Exam: NORMAL ACCOMODATION - ENT Exam ENT Exam: Mucous Membranes Moist, Normal Exam - Neck Exam Neck Exam: Full ROM, Normal Inspection - Respiratory Exam Respiratory Exam: Clear to Ausculation Bilateral, NORMAL BREATHING PATTERN - Cardiovascular Exam Cardiovascular Exam: REGULAR RHYTHM - GI/Abdominal Exam GI & Abdominal Exam: Soft, Normal Bowel Sounds - Rectal Exam Rectal Exam: NORMAL INSPECTION - Exam External exam: NORMAL EXTERNAL EXAM - Extremities Exam Extremities Exam: Full ROM, Normal Capillary Refill - Back Exam Back Exam: NORMAL INSPECTION - Neurological Exam Neurological Exam: Alert, Awake Neuro motor strength exam: Left Upper Extremity: 3, Right Upper Extremity: 3, Left Lower Extremity: 3, Right Lower Extremity: 3 - Psychiatric Exam Psychiatric exam: Normal Affect, Normal Mood - Skin Skin Exam: Normal Color Assessment and Plan (1) Seizure Assessment & Plan: deconditioning, paln for physical, occupational therpy Status: Acute (2) TIA (transient ischemic attack) Status: Acute
--- NOTE | 2018-09-11 11:51 | CP.PCM.PN ---
Subjective - Date & Time of Evaluation Date of Evaluation: 09/11/18 Time of Evaluation: 12:00 - Subjective Subjective: no acute complaints of pain discuss Dc plans Objective - Vital Signs/Intake and Output Vital Signs (last 24 hours): Temp Pulse Resp BP Pulse Ox 98.2 F 85 21 113/62 96 09/11/18 09:58 09/11/18 09:58 09/11/18 09:58 09/11/18 09:58 09/11/18 09:58 - Medications Medications: Current Medications Albuterol/Ipratropium (Duoneb 3 Mg/0.5 Mg (3 Ml) Ud) 3 ml INH RQ6 [facility] Last Admin: 09/11/18 08:13 Dose: 3 ml Enoxaparin Sodium (Lovenox) 40 mg SC DAILY [facility]; Protocol Last Admin: 09/11/18 08:51 Dose: 40 mg Famotidine (Pepcid) 20 mg PO DAILY [facility] Last Admin: 09/11/18 08:51 Dose: 20 mg Guaifenesin (Mucinex La) 600 mg PO Q12 [facility] Last Admin: 09/11/18 08:51 Dose: 600 mg Insulin Human Lispro (Humalog) 0 units SC ACHS [facility]; Protocol Last Admin: 09/11/18 06:35 Dose: Not Given Levothyroxine Sodium (Synthroid) 50 mcg PO 0630 [facility] Last Admin: 09/11/18 06:02 Dose: 50 mcg Nystatin (Nystatin Oral Susp) 5 ml PO QID [facility] Last Admin: 09/11/18 08:51 Dose: 5 ml - Labs Labs: 09/11/18 05:20 09/11/18 05:20 - Constitutional Appears: Well - Head Exam Head Exam: ATRAUMATIC, NORMAL INSPECTION, NORMOCEPHALIC - Eye Exam Eye Exam: EOMI, Normal appearance, PERRL Pupil Exam: NORMAL ACCOMODATION, PERRL - ENT Exam ENT Exam: Mucous Membranes Moist, Normal Exam - Neck Exam Neck Exam: Full ROM, Normal Inspection - Respiratory Exam Respiratory Exam: NORMAL BREATHING PATTERN - Cardiovascular Exam Cardiovascular Exam: REGULAR RHYTHM - GI/Abdominal Exam GI & Abdominal Exam: Soft, Normal Bowel Sounds - Rectal Exam Rectal Exam: NORMAL INSPECTION - Exam External exam: NORMAL EXTERNAL EXAM - Extremities Exam Extremities Exam: Full ROM, Normal Capillary Refill - Back Exam Back Exam: NORMAL INSPECTION - Neurological Exam Neurological Exam: Alert Neuro motor strength exam: Left Upper Extremity: 3, Right Upper Extremity: 3, Left Lower Extremity: 3, Right Lower Extremity: 3 - Psychiatric Exam Psychiatric exam: Normal Affect, Normal Mood - Skin Skin Exam: Dry, Intact Assessment and Plan (1) Seizure Assessment & Plan: plan for discharge for tomorrow, equipment eval and Dc planning, and services after Dc Status: Acute (2) TIA (transient ischemic attack) Status: Acute
--- NOTE | 2018-09-11 16:43 | CP.PCM.PN ---
Subjective - Date & Time of Evaluation Date of Evaluation: 09/11/18 Time of Evaluation: 14:40 - Subjective Subjective: Patient seen and examined. No complaint Objective - Vital Signs/Intake and Output Vital Signs (last 24 hours): Temp Pulse Resp BP Pulse Ox 98.2 F 85 21 113/62 96 09/11/18 09:58 09/11/18 09:58 09/11/18 09:58 09/11/18 09:58 09/11/18 09:58 - Medications Medications: Current Medications Albuterol/Ipratropium (Duoneb 3 Mg/0.5 Mg (3 Ml) Ud) 3 ml INH RQ6 [facility] Last Admin: 09/11/18 14:04 Dose: Not Given Enoxaparin Sodium (Lovenox) 40 mg SC DAILY [facility]; Protocol Last Admin: 09/11/18 08:51 Dose: 40 mg Famotidine (Pepcid) 20 mg PO DAILY [facility] Last Admin: 09/11/18 08:51 Dose: 20 mg Guaifenesin (Mucinex La) 600 mg PO Q12 [facility] Last Admin: 09/11/18 08:51 Dose: 600 mg Insulin Human Lispro (Humalog) 0 units SC ACHS [facility]; Protocol Last Admin: 09/11/18 12:23 Dose: Not Given Levothyroxine Sodium (Synthroid) 50 mcg PO 0630 [facility] Last Admin: 09/11/18 06:02 Dose: 50 mcg Nystatin (Nystatin Oral Susp) 5 ml PO QID [facility] Last Admin: 09/11/18 13:11 Dose: 5 ml - Labs Labs: 09/11/18 05:20 09/11/18 05:20 - Constitutional Appears: No Acute Distress - Head Exam Head Exam: ATRAUMATIC - Eye Exam Eye Exam: absent: Scleral icterus - ENT Exam ENT Exam: Mucous Membranes Moist - Neck Exam Neck Exam: absent: Meningismus - Respiratory Exam Respiratory Exam: absent: Rales, Rhonchi, Wheezes, Respiratory Distress - Cardiovascular Exam Cardiovascular Exam: REGULAR RHYTHM, +S1, +S2 - GI/Abdominal Exam GI & Abdominal Exam: Soft. absent: Tenderness - Rectal Exam Rectal Exam: Deferred - Neurological Exam Neurological Exam: Alert, Oriented x3 - Psychiatric Exam Psychiatric exam: Normal Affect - Skin Skin Exam: Dry, Intact Assessment and Plan - Assessment and Plan (Free Text) Assessment: 57 yo female with history of HTN, DM2, Hypothyroidism, Asthma and HLD was brought to [facility] on 08/29/18 after she was found unresponsive by son. Blood sugar was 48 so she was given IV D50. Patient recovered but was initially lethargic. Work ups which included CT scan, MRI and CSF analysis did not reveal significant findings. She was diagnosed to have seizure secondary to hypoglycemia. Diabetic medication were held and patient continued to improve. She was transferred to Acute Rehab for therapy because of deconditioning. 1. Deconditioning continue PT physiatry consult with Dr Osorio 2. Seizure no seizure medication since it was cause by hypoglycemia Dr Prado on neuro consult 3. HTN BP controlled without medications 4. DM2 BS controlled without meds HgA1C on 08/29/17 was 7.3 5. Hypothyroid TSH was 0.13 on 08/29 Levothyroxine reduced to 50mcg from 75mcg 6. DVT prophylaxis Lovenox 40mg SC daily
[2018-09-11 20:08] VITALS: RESP 20
[2018-09-12] MEDS: Albuterol-Ipratrop 3 mg / 0.5 (3 ml) UD INH SCH ×3 (00:27→13:01)
[2018-09-12] MEDS: Levothyroxine 50 MCG TAB PO SCH (05:56)
[2018-09-12] MEDS: Insulin Lispro (humaLOG) 100 Units/ml Inj SC SCH ×2 (07:20→11:04)
[2018-09-12 07:39] VITALS: BP 118/76; PULSE 80; TEMP 97.9; O2SAT 100
[2018-09-12] MEDS: guaiFENesin 600 mg ER Tab PO SCH (08:21)
[2018-09-12] MEDS: Enoxaparin 40 mg Syringe SC SCH (08:21)
[2018-09-12] MEDS: Nystatin 100,000 Units/ml Oral Susp 5 ml UD PO SCH ×2 (08:21→12:58)
--- NOTE | 2018-09-12 10:21 | CP.PCM.DIS ---
Provider - Provider Date of Admission: 09/02/18 17:00 Attending physician: Jovany Frederick MD Consults: Dr Osorio Time Spent in preparation of Discharge (in minutes): 25 Diagnosis - Discharge Diagnosis (1) Seizure Status: Acute Comment: seizure secondary to hypoglycemia. no recurrence of seizure activity since admission (2) HTN (hypertension) Status: Chronic Comment: BP controlled without medication. continue low salt diet (3) DM2 (diabetes mellitus, type 2) Status: Chronic Comment: diabetic medications stopped since patient continue to have controlled BS without anti-diabetic meds. continue diabetic diet (4) Hypothyroid Status: Chronic Comment: continue Levothyroxine 50mcg PO daily Hospital Course - Lab Results Lab Results: Most Recent Lab Values WBC 4.7 K/uL (4.8-10.8) L 09/11/18 05:20 RBC 3.99 Mil/uL (3.80-5.20) 09/11/18 05:20 Hgb 12.5 g/dL (12.0-16.0) 09/11/18 05:20 Hct 37.3 % (34.0-47.0) 09/11/18 05:20 MCV 93.5 fl (81.0-99.0) 09/11/18 05:20 MCH 31.3 pg (27.0-31.0) H 09/11/18 05:20 MCHC 33.5 g/dL (33.0-37.0) 09/11/18 05:20 RDW 14.6 % (11.5-14.5) H 09/11/18 05:20 Plt Count 321 K/uL (130-400) 09/11/18 05:20 Sodium 141 mmol/l (132-148) 09/11/18 05:20 Potassium 4.2 MMOL/L (3.6-5.0) 09/11/18 05:20 Chloride 107 mmol/L (98-107) 09/11/18 05:20 Carbon Dioxide 25 mmol/L (22-30) 09/11/18 05:20 Anion Gap 13 (10-20) 09/11/18 05:20 BUN 13 mg/dl (7-17) 09/11/18 05:20 Creatinine 0.8 mg/dl (0.7-1.2) 09/11/18 05:20 Est GFR ( Amer) > 60 09/11/18 05:20 Est GFR (Non-Af Amer) > 60 09/11/18 05:20 POC Glucose (mg/dL) 127 mg/dL (65-110) H 09/12/18 05:45 Random Glucose 132 mg/dL (65-105) H 09/11/18 05:20 Calcium 9.8 mg/dL (8.4-10.2) 09/11/18 05:20 Phosphorus 4.7 mg/dl (2.5-4.5) H 09/10/18 06:20 Free T4 0.71 ng/dL (0.78-2.19) L 09/10/18 06:20 - Hospital Course Hospital Course: 57 yo female with history of HTN, DM2, Hypothyroidism, Asthma and HLD was brought to [facility] on 08/29/18 after she was found unresponsive by son. Blood sugar was 48 so she was given IV D50. Patient recovered but was initially lethargic. Work ups which included CT scan, MRI and CSF analysis did not reveal significant findings. She was diagnosed to have seizure secondary to hypoglycemia. Diabetic medication were held and patient continued to improve. Patient was transferred to Acute Rehab for therapy and did well and now is ready for discharge. Discharge Exam - Head Exam Head Exam: ATRAUMATIC - Eye Exam Eye Exam: Normal appearance - ENT Exam ENT Exam: Mucous Membranes Moist - Respiratory Exam Respiratory Exam: absent: Rales, Rhonchi, Wheezes, Respiratory Distress - Cardiovascular Exam Cardiovascular Exam: REGULAR RHYTHM, +S1, +S2 - GI/Abdominal Exam GI & Abdominal Exam: Soft. absent: Tenderness - Rectal Exam Rectal Exam: Deferred - Neurological Exam Neurological exam: Alert, Oriented x3 - Psychiatric Exam Psychiatric exam: Normal Affect - Skin Skin Exam: Dry, Intact Discharge Plan - Follow Up Plan Condition: GOOD Disposition: HOME/ ROUTINE
== END 2018-09-12 13:30 | disposition home or self-care (01) | DRG 101 ==
PROC: F07Z9FZ Gait Training/Functional Ambulation Treatment using Assistive, Adaptive, Supportive or Protective Equipment (ICD-10-PCS; principal; 2018-09-02)
PROC: F08Z4FZ Home Management Treatment using Assistive, Adaptive, Supportive or Protective Equipment (ICD-10-PCS; 2018-09-02)
PROC: F07M6FZ Therapeutic Exercise Treatment of Musculoskeletal System - Whole Body using Assistive, Adaptive, Supportive or Protective Equipment (ICD-10-PCS; 2018-09-02)
DX: G40.89 Other seizures (principal); E11.649 Type 2 diabetes mellitus with hypoglycemia without coma; E03.9 Hypothyroidism, unspecified; E78.5 Hyperlipidemia, unspecified; I10 Essential (primary) hypertension; J45.909 Unspecified asthma, uncomplicated; K21.9 Gastro-esophageal reflux disease without esophagitis; Z86.73 Personal history of transient ischemic attack (TIA), and cerebral infarction without residual deficits